=== PATIENT | male | born 1980 | race Caucasian/White ===

== ENCOUNTER 2017-12-27 17:10 | Emergency (ER) | payer SELFPAY ==
[~2017-12-27] VITALS: Ht 170.2 cm; Wt 95.5 kg
[2017-12-27 17:15] VITALS: BP 140/105
== END 2017-12-27 19:49 | disposition left against medical advice (07) ==
LOC: EMS 17:12
DX: F10.129 Alcohol abuse with intoxication, unspecified (principal); Z53.21 Procedure and treatment not carried out due to patient leaving prior to being seen by health care provider

== ENCOUNTER 2018-02-10 12:34 | Emergency (ER) | payer OTHER ==
[~2018-02-10] VITALS: Ht 170.2 cm; Wt 86.4 kg
[2018-02-10 14:44] VITALS: BP 138/83
== END 2018-02-10 14:54 | disposition home or self-care (01) ==
LOC: EMS 12:35
DX: F12.10 Cannabis abuse, uncomplicated (principal); F17.210 Nicotine dependence, cigarettes, uncomplicated; F10.239 Alcohol dependence with withdrawal, unspecified